=== PATIENT | female | born 1945 | race Caucasian/White ===

== ENCOUNTER → 2017-05-31 | Day surgery (SDC) | payer MEDICARE, BC ==
[~2017-05-31] MED LIST: CYAN1TAB24; ESTR2TAB PO; LIDOCAINE HCL 1% 20 ML VIAL ONE; LORA10TA PO; LOSA100T3 PO; MELAPOW2; OMEG100010; PANT40TA3 PO; RANI150T PO; ROSU1TAB6 PO; SYMB160A INH; TUMS500C CHEW; VENTAER INH; VITA500012 PO
[2017-05-31 13:26] VITALS: BP 163/72; PULSE 44; RESP 18; TEMP 98.4; O2SAT 94
[2017-05-31 14:20] VITALS: BP 167/78; PULSE 70; RESP 20; TEMP 97.7; O2SAT 98
[2017-05-31 14:40] VITALS: BP 152/64; PULSE 72; RESP 18; O2SAT 98
--- NOTE | 2017-05-31 14:40 | RADRPT ---
EXAM DATE/TIME: 05/31/2017 13:32 [facility] COMPARISON: No previous studies available for comparison. EXTERNAL COMPARISON: [facility], Ultrasound Thyroid, Apr 25 2017 INDICATIONS : Bilateral thyroid nodules. The dominant nodule in the right thyroid lobe measuring up to 1.9 cm will be targeted. MEDICAL HISTORY : Hypertension. Hypertriglyceridemia. Hyperlipidemia. Asthma. Fatty liver. SURGICAL HISTORY : Hysterectomy. Breast biopsy. Breast reduction. Infertility surgery. Radical keratotomy. Liver bio psy. Colonoscopy. Abdominal leiomyoma removal. ENCOUNTER: Initial ACUITY: 1 month PAIN SCORE: 0/10 LOCATION: Right neck ORGAN: Right thyroid lobe SPECIMENS: Four fine needle aspirate(s) submitted for pathologic evaluation. DEVICE: 22 gauge needle Post procedure scanning reveals no hematoma or other complication. The possibility does exist that the tissue obtained will be non-diagnostic. If the sample is non-barbara gnostic a repeat biopsy or surgical biopsy may need to be performed. TECHNIQUE: 1. Ultrasound guidance for needle biopsy. 2. Needle biopsy. The risks, benefits and alternatives to the procedure were explained and verbal and written consent w as obtained. The site was prepped in sterile fashion. Full sterile technique was used, including ca p, mask, sterile gloves and gown and a large sterile sheet. Hand hygiene and 2% chlorhexidine and/or betadine/alcohol prep was utilized per protocol for cutaneous antisepsis. The skin and subcutaneous tissues were infiltrated with local anesthetic solution. Sterile gel and sterile probe cover were u tilized for ultrasound guidance. With the patient on the ultrasound table, images were obtained. A needle was advanced into the identified target and the number of specimens as above obtained and weber bmitted for pathologic evaluation. The patient tolerated the procedure well and left the ultrasound suite in stable condition. CONCLUSION: Uncomplicated ultrasound guided right thyroid nodule needle biopsy. Diaz Alejandra MD on May 31, 2017 at 14:38 Board Certified Radiologist. This report was verified electronically.
--- NOTE | 2017-05-31 14:41 | RADRPT ---
EXAM DATE/TIME: 05/31/2017 13:32 [facility] COMPARISON: No previous studies available for comparison. EXTERNAL COMPARISON: [facility], Ultrasound Thyroid, Apr 25 2017 INDICATIONS : Multiple bilateral thyroid nodules. The dominant nodule measuring up to 1.1 cm in the left thyroid lo be will be targeted. MEDICAL HISTORY : Hypertension. Hypertriglyceridemia. Hyperlipidemia. Asthma. Fatty liver. SURGICAL HISTORY : Hysterectomy. Breast biopsy. Breast reduction. Infertility surgery. Radical keratotomy. Liver bio psy. Colonoscopy. Abdominal leiomyoma removal. ENCOUNTER: Initial ACUITY: 1 month PAIN SCORE: 0/10 LOCATION: Left neck ORGAN: Left thyroid lobe SPECIMENS: Four fine needle aspirate(s) submitted for pathologic evaluation. DEVICE: 22 gauge needle Post procedure scanning reveals no hematoma or other complication. The possibility does exist that the tissue obtained will be non-diagnostic. If the sample is non-barbara gnostic a repeat biopsy or surgical biopsy may need to be performed. TECHNIQUE: 1. Ultrasound guidance for needle biopsy. 2. Needle biopsy. The risks, benefits and alternatives to the procedure were explained and verbal and written consent w as obtained. The site was prepped in sterile fashion. Full sterile technique was used, including ca p, mask, sterile gloves and gown and a large sterile sheet. Hand hygiene and 2% chlorhexidine and/or betadine/alcohol prep was utilized per protocol for cutaneous antisepsis. The skin and subcutaneous tissues were infiltrated with local anesthetic solution. Sterile gel and sterile probe cover were u tilized for ultrasound guidance. With the patient on the ultrasound table, images were obtained. A needle was advanced into the identified target and the number of specimens as above obtained and weber bmitted for pathologic evaluation. The patient tolerated the procedure well and left the ultrasound suite in stable condition. CONCLUSION: Uncomplicated ultrasound guided needle biopsy. Diaz Alejandra MD on May 31, 2017 at 14:38 Board Certified Radiologist. This report was verified electronically.
== END | disposition home or self-care (01) ==
LOC: HRAD 12:49
PROVIDERS: ATTEND Physician Assistant Medical
DX: E04.2 Nontoxic multinodular goiter (principal); E78.1 Pure hyperglyceridemia; I10 Essential (primary) hypertension; J45.909 Unspecified asthma, uncomplicated
CPT/HCPCS: 10022; 76942; 88172; 88173

== ENCOUNTER 2018-06-11 12:48 | Observation (INO) ==
--- NOTE | 2018-06-11 13:57 | ED ---
HPI General Chief Complaint: Shortness of Breath/Dyspnea Stated Complaint: Resp complaint Time Seen by Provider: 06/11/18 13:07 Source: patient Mode of arrival: ambulatory Limitations: no limitations History of Present Illness 73 yo F c/o asthma symptoms for about three weeks. Pt has hx asthma dx'd 20 years prior. At home inhalers (ventolin/symbicort) have note been helpful, using them up to 5 times daily. No fever/chills. + Sick contact with who had a viral syndrome. Pt visiting Dr Wells for steroid infusions which have not been helpful. Pt completed course of azithromycin with no improvement. Pt finished course of Levaquin with no improvement. Mild chest tightness is reported c/w typical asthma symptoms. No similar prior asthma episodes. Related Data Home Medications Medication Instructions Recorded Confirmed albuterol sulfate [Ventolin HFA] 2 puff INHALATION Q4-6H PRN 06/11/18 06/11/18 budesonide-formoterol [Symbicort] 2 puff INHALATION Q12H 06/11/18 06/11/18 estradiol 2 mg PO DAILY 06/11/18 06/11/18 loratadine 10 mg PO DAILY 06/11/18 06/11/18 losartan-hydrochlorothiazide 1 tab PO DAILY 06/11/18 06/11/18 melatonin 5 mg PO HS PRN 06/11/18 06/11/18 omega 9-occ-rla-fish oil [Fish Oil] 06/11/18 pantoprazole 40 mg PO DAILY 06/11/18 06/11/18 ranitidine HCl 150 mg PO DAILY 06/11/18 06/11/18 Allergies Allergy/AdvReac Type Severity Reaction Status Date / Time cephalexin Allergy Severe Hives Verified 06/11/18 15:23 adhesive Allergy Intermediate skin Verified 06/11/18 15:23 irritation Review of Systems ROS: all other systems reviewed are negative [facility] Medical History Medical History Asthma (Acute) GERD (gastroesophageal reflux disease) (Acute) History of hysterectomy (Acute) Hypercholesteremia (Acute) Hypertension (Acute) Surgical History Surgical History History of bilateral breast reduction surgery (Acute) Social History Social History Substance History: No History of Abuse Smoking Status: Never smoker How Often Do You Have a Drink Containing Alcohol: Never Recent Travel in [facility] within the Last 8 Weeks: No Recent Out of Country Travel within the Last 8 Weeks: No Immunization History Tetanus Immunization: >5 Years Exam Narrative Exam Narrative: GENERAL: 73 yo F, pleasant, mild dyspnea SKIN: Focused skin assessment warm/dry. HEAD: Atraumatic. Normocephalic. EYES: Pupils equal and round. No scleral icterus. No injection or drainage. ENT: No nasal bleeding or discharge. Mucous membranes pink and moist. NECK: Trachea midline. No JVD. CARDIOVASCULAR: Tachycardia to about 90s. Regular rhythm. RESPIRATORY: Occasional cough. Wheezing present bilaterally. Rate approx 20. GASTROINTESTINAL: Abdomen soft, non-tender, nondistended. Hepatic and splenic margins not palpable. MUSCULOSKELETAL: No obvious deformities. No clubbing. No cyanosis. No edema. NEUROLOGICAL: Awake and alert. No obvious cranial nerve deficits. Motor grossly within normal limits. Normal speech. PSYCHIATRIC: Appropriate mood and affect; insight and judgment normal. Course Initial Documented Vital Signs Temperature 97.2 F L 06/11/18 12:59 Pulse Rate 101 H 06/11/18 12:59 Respiratory Rate 20 06/11/18 12:59 Blood Pressure 198/88 H 06/11/18 12:59 Pulse Oximetry 96 06/11/18 12:59 Last Documented Vital Signs Temperature 97.2 F L 06/11/18 12:59 Pulse Rate 66 06/11/18 15:24 Respiratory Rate 16 06/11/18 15:24 Blood Pressure 134/61 06/11/18 15:24 Pulse Oximetry 95 06/11/18 15:24 Medical Decision Making MDM Narrative Medical decision making narrative: Pt reports marginal improvement after duonebs here x 2. We see a measurable troponin here at 0.02. Pt denies stress test/coronary evaluation since. Mild prerenal azotemia noted, possibly related to measurable troponin. CT PE study shows base density which was seen two years ago and followed up one year prior. Pt will follow up with PMD regarding nodule; pt verbalized intent to follow up as discussed. Call to admitting service at 340pm. d/w Dr Zhang for [facility]. Medical Screen Exam Complete: Yes Emergency Medical Condition: Yes Lab Data Result diagrams: 06/11/18 13:45 06/11/18 13:45 Lab Results 06/11/18 06/11/18 06/11/18 Range/Units 13:45 13:45 13:45 WBC 19.5 H (4.0-11.0) th/mm3 RBC 4.04 (4.00-5.30) mil/mm3 Hgb 13.3 (11.6-15.3) gm/dL Hct 38.4 (35.0-46.0) % MCV 95.0 (80.0-100.0) fL MCH 33.0 (27.0-34.0) pg MCHC 34.7 (32.0-36.0) % RDW 13.3 (11.6-17.2) % Plt Count 162 (150-450) th/mm3 MPV 7.6 (7.0-11.0) fL Neut % (Auto) 80.4 H (16.0-70.0) % Lymph % (Auto) 10.7 (9.0-44.0) % [place] % (Auto) 8.7 H (0.0-8.0) % Eos % (Auto) 0.0 (0.0-4.0) % Baso % (Auto) 0.2 (0.0-2.0) % Neut # (Auto) 15.7 H (1.8-7.7) th/mm3 Lymph # (Auto) 2.1 (1.0-4.8) th/mm3 [place] # (Auto) 1.7 H (0.0-0.9) th/mm3 Eos # (Auto) 0.0 (0.0-0.4) th/mm3 Baso # (Auto) 0.0 (0.0-0.2) th/mm3 WBC Differential . Differential Comment Auto diff final Sodium 140 (136-145) meq/L Potassium 3.5 (3.5-5.1) meq/L Chloride 106 (98-107) meq/L Carbon Dioxide 22.5 (21.0-32.0) meq/L Anion Gap 12 (5-15) meq/L BUN 39 H (7-18) mg/dL Creatinine 1.23 H (0.50-1.00) mg/dL Estimated GFR 43 L (>89) mL/min Random Glucose 96 (74-106) mg/dL Calcium 8.4 L (8.5-10.1) mg/dL Total Bilirubin 0.5 (0.2-1.0) mg/dL AST 10 L (15-37) U/L ALT 24 (10-53) U/L Alkaline Phosphatase 75 (45-117) U/L Troponin I 0.02 (0.02-0.05) ng/mL B-Natriuretic Peptide 52 (0-100) pg/mL Total Protein 6.8 (6.4-8.2) g/dL Albumin 3.2 L (3.4-5.0) g/dL Imaging Data Radiologist's impression: Chest X-Ray 06/11/18 13:31 CONCLUSION: No acute cardiopulmonary process. Chest CTA 06/11/18 13:33 CONCLUSION: 1. No pulmonary emboli. 2. 6 mm left lower lobe pulmonary nodule with some worrisome features. The lesion is too small for percutaneous biopsy. Consider further characterization utilizing a PET/CT. Alternatively a short-term follow-up CT of the chest in 3-6 months. Discharge Plan Discharge Disposition Patient Disposition: ED Admit(ED Internal Use Only) Discharge Order Discharge Orders: ED Use Only Admit Order (Routine); Ordered 06/11/18 Ordered By: John Suárez Physicians Team ED Provider: John Suárez Primary Care Provider: UNKNOWN, Attending Provider: Rory Pedraza Status ED Status: Admitted Observation Patient
[2018-06-11 14:00] LABS: Baso % (Auto) 0.2 % (0.0-2.0); Hematocrit 38.4 % (35.0-46.0); Hemoglobin 13.3 gm/dL (11.6-15.3); Lymph # (Auto) 2.1 th/mm3 (1.0-4.8); Lymph % (Auto) 10.7 % (9.0-44.0); Mean Corpuscular HGB Conc 34.7 % (32.0-36.0); Mean Platelet Volume 7.6 fL (7.0-11.0); Mono # (Auto) 1.7 th/mm3 (0.0-0.9); Mono % (Auto) 8.7 % (0.0-8.0); Neut # (Auto) 15.7 th/mm3 (1.8-7.7); Neut % (Auto) 80.4 % (16.0-70.0); Platelet Count 162 th/mm3 (150-450); Red Blood Count 4.04 mil/mm3 (4.00-5.30); Red Cell Distribution Width 13.3 % (11.6-17.2); White Blood Count 19.5 th/mm3 (4.0-11.0)
--- NOTE | 2018-06-11 14:15 | XR ---
EXAM DATE: 06/11/2018 1:58 PM EST AGE/SEX: 73 years / Female INDICATIONS: Difficulty breathing and chest tightness. CLINICAL DATA: This is the patient's initial encounter. Patient reports that signs and symptoms have been present for 2 days and indicates a pain score of 1/10. MEDICAL/SURGICAL HISTORY: Hypertension. Asthma. Breast biopsy. Breast reduction. Liver biopsy. COMPARISON: [facility] [place], CHEST SINGLE AP, 03/31/2016. . FINDINGS: A single AP view of the chest demonstrates the lungs to be symmetrically aerated without evidence of mass, infiltrate or effusion. The cardiomediastinal contours are unremarkable. Osseous structures a re intact. CONCLUSION: No acute cardiopulmonary process. Electronically signed by: Yariel Lemos MD 06/11/2018 2:14 PM EST
[2018-06-11 14:20] LABS: Alanine Aminotransferase 24 U/L (10-53); Albumin 3.2 g/dL (3.4-5.0); Anion Gap 12 meq/L (5-15); Aspartate Aminotransferase 10 U/L (15-37); Blood Urea Nitrogen 39 mg/dL (7-18); Calcium 8.4 mg/dL (8.5-10.1); Carbon Dioxide 22.5 meq/L (21.0-32.0); Chloride 106 meq/L (98-107); Glomerular Filtration Rate 43 mL/min (>89); Glucose,Random 96 mg/dL (74-106); Potassium 3.5 meq/L (3.5-5.1); Sodium 140 meq/L (136-145)
[2018-06-11 14:24] LABS: Alkaline Phosphatase 75 U/L (45-117); Total Protein 6.8 g/dL (6.4-8.2); Troponin I 0.02 ng/mL (0.02-0.05)
[2018-06-11] MEDS ORDERED: Sod Chloride 0.9% Inj 1,000 ML IV.SIG SCH ×3 (14:45→17:00)
--- NOTE | 2018-06-11 15:20 | CT ---
EXAM DATE: 06/11/2018 3:11 PM EST AGE/SEX: 73 years / Female INDICATIONS: Shortness of breath for three days. CLINICAL DATA: This is the patient's initial encounter. Patient reports that signs and symptoms have been present for 1 day and indicates a pain score of 0/10. MEDICAL/SURGICAL HISTORY: Asthma. Gastroesophageal reflux disease. Hypertension. Hysterectomy. RADIATION DOSE: 13.56 CTDI (mGy) COMPARISON: No prior exams available for comparison. TECHNIQUE: Volumetric scanning was performed using a multi-row detector CT scanner during bolus infu sabino of 66 ml Omnipaque 350 (iohexol) nonionic water-soluble contrast as a single exam dose. The khris a was post processed with a variety of visualization algorithms including full volume maximum intensi ty projection and sliding thin slab reformation. Using automated exposure control and adjustment of t he mA and/or kV according to patient size, radiation dose was kept as low as reasonably achievable to obtain optimal diagnostic quality images. DICOM format image data is available electronically for r eview and comparison. FINDINGS: Pulmonary Arteries: No filling defects are seen in the pulmonary arteries out to the subsegmental ve ssels. The left and right pulmonary arteries are normal in diameter. Lung: There is a 6 mm spiculated nodule within the posterior basilar segment left lower lobe. A 2 mm calcified granuloma within the right upper lobe. Remaining lungs are clear. No infiltrate.. Effusion: None. Mediastinum: No evidence of mediastinal or hilar adenopathy. Other: The axilla is unremarkable. CONCLUSION: 1. No pulmonary emboli. 2. 6 mm left lower lobe pulmonary nodule with some worrisome features. The lesion is too small for p ercutaneous biopsy. Consider further characterization utilizing a PET/CT. Alternatively a short-term follow-up CT of the chest in 3-6 months. Electronically signed by: Kaden Zavala MD 06/11/2018 3:19 PM EST
--- NOTE | 2018-06-11 16:26 | P.HPFP ---
History of Present Illness Primary Care Physician: UNKNOWN <Rory Pedraza - 06/12/18 15:32> UNKNOWN <Timmy Zhang - 06/11/18 16:25> History of Present Illness: She is a 73-year-old woman with past medical history significant for asthma and hypertension who presents today with shortness of breath and chest tightness for 3 weeks. She went to her lab coordinator around the onset of her symptoms and was given a week of prednisone and azithromycin with little improvement. She went back to the lab coordinator and was given different medications that she is not sure of. This week she has been going to the lab coordinator for IV steroid infusions in the clinic (Tuesday and Tuesday). She had little improvement and was scheduled to go in for IV steroids today, however she decided to go to the ED instead. She continues have shortness of breath and cough and difficulty breathing deeply. Her cough is not productive. She does have some chest tightness, a mild feeling of weakness, and a feeling of racing heart, however denies ever chest pain. She is still able to complete her normal activities around the house, however has not been getting any exercise. Her is sick with a viral syndrome at home. She has had 2 days of nonbloody diarrhea (4 stools per day) She denies chest pain, headache, nausea, vomiting, lightheadedness, dizziness, changes in vision, changes in hearing, abdominal pain, blood in stool, dysuria. Medical history: Asthma: [employer] Dr. Wells [facility] [place] Hypertension Hyperlipidemia Surgical history: Breast reduction 1996 Hysterectomy 1986 Radial Karatonomy 1991 Abdomen mass removed 03/31/16 Family history: Multiple family members with early heart disease Social history: No tobacco, no drinking, no drugs <Timmy Zhang - 06/11/18 17:07> - Diagnosis (1) Asthma (2) Acute kidney injury (3) Hypertension (4) Leukocytosis (5) Lung nodule < 6cm on CT <Rory Pedraza - 06/12/18 15:32> (1) Asthma (2) Elevated troponin (3) Acute kidney injury (4) Leukocytosis <Timmy Zhang - 06/11/18 16:39> Review of Systems Constitutional: Denies chills, Denies fever(s) <Timmy Zhang - 17:07> Eyes: Denies blurry vision, Denies change in vision <Timmy Zhang 17:07> Ears, Nose, Mouth, and Throat: Denies abnormal hearing, Denies dizziness < Timmy Zhang 06/11/18 17:07> Cardiovascular: Denies chest pain, Denies fainting, Denies radiating jaw, neck or arm pain <Timmy Zhang 06/11/18 17:07> Respiratory: Reports cough, Reports shortness of breath, Denies coughing up blood <Timmy Zhang 06/11/18 17:07> Gastrointestinal: Denies abdominal pain, Denies black, tarry stools, Denies bright, red blood in stools <Timmy Zhang 06/11/18 17:07> Neurologic: Denies abnormal hearing, Denies loss of vision <Timmy Zhang 06/11/18 17:07> PMFSH - History History Provided By: Patient, Family Member <Timmy Zhang 06/11/18 16:25> - Medical History Medical History: Medical History (Last Updated 06/11/18 @ 13:21 by Janki Porter) Asthma GERD (gastroesophageal reflux disease) History of hysterectomy Hypercholesteremia Hypertension <Rory Pedraza - 06/12/18 15:32> Medical History (Last Updated 06/11/18 @ 13:21 by Janki Porter) Asthma GERD (gastroesophageal reflux disease) History of hysterectomy Hypercholesteremia Hypertension <Timmy Zhang - 06/11/18 16:25> - Surgical History Surgical History: Surgical History (Last Updated 06/11/18 @ 13:21 by Janki Porter) History of bilateral breast reduction surgery <Rory Pedraza - 06/12/18 15:32> Surgical History (Last Updated 06/11/18 @ 13:21 by Janki Porter) History of bilateral breast reduction surgery <Timmy Zhang 06/11/18 16:25> - Tobacco History Smoking Status: Never smoker <Timmy Zhang - 06/11/18 16:25> - Alcohol History How Often Do You Have a Drink Containing Alcohol: Never <Timmy Zhang - 06/11/18 16:25> - Substance Use History Substance History: No History of Abuse <Timmy Zhang - 06/11/18 16:25> - Travel History Recent Travel in the [facility] Within the Last 8 Weeks: No <Timmy Zhang - 06/11/18 16:25> Recent Travel Out of the Country Within the Last 8 Weeks: No <Timmy Zhang - 06/11/18 16:25> - Immunization History Tetanus Immunization: >5 Years <Timmy Zhang - 06/11/18 16:25> Medications and Allergies Allergies Allergy/AdvReac Type Severity Reaction Status Date / Time cephalexin Allergy Severe Hives Verified 06/11/18 15:23 adhesive Allergy Intermediate skin Verified 06/11/18 15:23 irritation <Rory Pedraza - 06/12/18 15:32> Home Medications Medication Instructions Recorded Confirmed Type albuterol sulfate [Ventolin HFA] 2 puff INHALATION Q4-6H PRN 06/11/18 06/11/18 History budesonide-formoterol [Symbicort] 2 puff INHALATION Q12H 06/11/18 06/11/18 History estradiol 2 mg PO DAILY 06/11/18 06/11/18 History loratadine 10 mg PO DAILY 06/11/18 06/11/18 History losartan-hydrochlorothiazide 1 tab PO DAILY 06/11/18 06/11/18 History melatonin 5 mg PO HS PRN 06/11/18 06/11/18 History omega 0-sln-rfh-fish oil [Fish Oil] 06/11/18 History pantoprazole 40 mg PO DAILY 06/11/18 06/11/18 History ranitidine HCl 150 mg PO DAILY 06/11/18 06/11/18 History <Rory Pedraza - 06/12/18 15:32> Active Medications: Active Medications Albuterol (Duoneb Neb (Prn)) 1 ampul NEB Q15M PRN PRN Reason: WHEEZING Last Admin: 06/11/18 14:26 Dose: 1 ampul Sodium Chloride (Ns Inj) 1,000 mls @ 1,000 mls/hr IV.SIG BOLUS RAUL Stop: 06/11/18 16:44 <Timmy Zhang - 06/11/18 16:25> Exam Vital signs: Vital Signs 06/11/18 19:41 06/11/18 20:00 06/12/18 00:01 Temperature 97.6 F 97.7 F Pulse Rate 80 77 77 Respiratory Rate 17 16 16 Blood Pressure 138/71 128/63 Pulse Oximetry 98 96 96 06/12/18 04:00 06/12/18 07:00 06/12/18 07:29 Temperature 98.1 F Pulse Rate 58 L 62 Respiratory Rate 20 12 17 Blood Pressure 131/56 L Pulse Oximetry 95 97 06/12/18 07:59 06/12/18 09:00 06/12/18 11:20 Temperature 97.4 F L Pulse Rate 82 64 74 Respiratory Rate 16 17 Blood Pressure 145/65 H Pulse Oximetry 96 06/12/18 12:00 06/12/18 15:19 Temperature Pulse Rate 73 72 Respiratory Rate 16 17 Blood Pressure 121/60 Pulse Oximetry 96 Intake & Output 06/11/18 06/12/18 06/12/18 18:59 06:59 18:59 Intake Total 1999 1230 / 1230 1000 / 1000 Balance 1999 1230 / 1230 1000 / 1000 Weight 72.121 kg 72.12 kg Intake: IV 1999 1000 / 1000 NS Inj 1,000 ML @ 1000 mls/hr 1999 IV.SIG BOLUS RAUL Rx#:[id number] Oral 1230 / 1230 Other: # Voids 3 4 Date of Last Bowel Movement 06/11/18 06/12/18 Weight On Admission 72.121 kg <Rory Pedraza - 06/12/18 15:32> Vital Signs 06/11/18 12:59 06/11/18 13:15 06/11/18 13:48 Temperature 97.2 F L Pulse Rate 101 H 91 H 68 Respiratory Rate 20 18 Blood Pressure 198/88 H 187/80 H Pulse Oximetry 96 97 96 06/11/18 14:27 06/11/18 15:24 Temperature Pulse Rate 68 66 Respiratory Rate 17 16 Blood Pressure 134/61 Pulse Oximetry 95 Intake & Output 06/10/18 06/11/18 06/11/18 18:59 06:59 18:59 Weight 72.121 kg <Timmy Zhang - 06/11/18 16:25> Narrative: General: Well-developed, alert, and in no acute distress. Appears stated age HEENT: Atraumatic, non-icteric sclera and no conjunctival injection, moist mucous membranes Neck: Supple, trachea midline Cardiac: Regular rate and rhythm without murmurs or gallops Pulmonary: Non-labored breathing. Mild end expiratory wheezes in all lung martin with good air movement. Abdomen: Normal bowel sounds, soft and non-tender without rebound or guarding Extremities: No edema, 2+ pedal pulses, capillary refill less than 2 seconds <Timmy Zhang - 06/11/18 17:07> Results - Labs Result diagrams: 06/12/18 04:21 06/12/18 04:21 <Rory Pedraza - 06/12/18 15:32> Abnormal lab results 06/12/18 06/12/18 06/12/18 Range/Units 04:21 04:21 10:37 WBC 11.9 H (4.0-11.0) th/mm3 RBC 3.75 L (4.00-5.30) mil/mm3 Plt Count 136 L (150-450) th/mm3 Neut % (Auto) 88.5 H (16.0-70.0) % Lymph % (Auto) 8.6 L (9.0-44.0) % Neut # (Auto) 10.6 H (1.8-7.7) th/mm3 Chloride 109 H (98-107) meq/L BUN 30 H (7-18) mg/dL Creatinine 1.15 H (0.50-1.00) mg/dL Estimated GFR 47 L (>89) mL/min Random Glucose 136 H (74-106) mg/dL Calcium 8.3 L (8.5-10.1) mg/dL Troponin I Less than 0.02 L (0.02-0.05) ng/mL Short CBC 06/12/18 Range/Units 04:21 WBC 11.9 H (4.0-11.0) th/mm3 Hgb 12.2 (11.6-15.3) gm/dL Hct 36.1 (35.0-46.0) % Plt Count 136 L (150-450) th/mm3 BMP 06/12/18 04:21 Sodium 139 Potassium 4.3 D Chloride 109 H Carbon Dioxide 23.6 BUN 30 H Creatinine 1.15 H Calcium 8.3 L Cardiac Enzymes 06/11/18 06/12/18 Range/Units 19:25 10:37 Troponin I 0.03 Less than 0.02 L (0.02-0.05) ng/mL <Rory Pedraza - 06/12/18 15:32> Abnormal lab results 06/11/18 06/11/18 Range/Units 13:45 13:45 WBC 19.5 H (4.0-11.0) th/mm3 Neut % (Auto) 80.4 H (16.0-70.0) % Blount % (Auto) 8.7 H (0.0-8.0) % Neut # (Auto) 15.7 H (1.8-7.7) th/mm3 Blount # (Auto) 1.7 H (0.0-0.9) th/mm3 BUN 39 H (7-18) mg/dL Creatinine 1.23 H (0.50-1.00) mg/dL Estimated GFR 43 L (>89) mL/min Calcium 8.4 L (8.5-10.1) mg/dL AST 10 L (15-37) U/L Albumin 3.2 L (3.4-5.0) g/dL Short CBC 06/11/18 Range/Units 13:45 WBC 19.5 H (4.0-11.0) th/mm3 Hgb 13.3 (11.6-15.3) gm/dL Hct 38.4 (35.0-46.0) % Plt Count 162 (150-450) th/mm3 BMP 06/11/18 13:45 Sodium 140 Potassium 3.5 Chloride 106 Carbon Dioxide 22.5 BUN 39 H Creatinine 1.23 H Calcium 8.4 L Cardiac Enzymes 06/11/18 Range/Units 13:45 Troponin I 0.02 (0.02-0.05) ng/mL Liver Function 06/11/18 Range/Units 13:45 Total Bilirubin 0.5 (0.2-1.0) mg/dL AST 10 L (15-37) U/L ALT 24 (10-53) U/L Alkaline Phosphatase 75 (45-117) U/L Albumin 3.2 L (3.4-5.0) g/dL <Timmy Zhang - 06/11/18 16:25> - Imaging Impressions Chest X-Ray 06/11/18 13:31 CONCLUSION: No acute cardiopulmonary process. Chest CTA 06/11/18 13:33 CONCLUSION: 1. No pulmonary emboli. 2. 6 mm left lower lobe pulmonary nodule with some worrisome features. The lesion is too small for percutaneous biopsy. Consider further characterization utilizing a PET/CT. Alternatively a short-term follow-up CT of the chest in 3-6 months. <Timmy Zhang - 06/11/18 16:25> Caprini VTE Risk Assessment Caprini VTE Risk Assessment: Moderate/High Risk (score >= 2) <Timmy Zhang - 06/11/18 17:07> Caprini Risk Assessment Model: Point Value = 1 Point Value = 2 Point Value = 3 Point Value = 5 Age 41-60 Minor surgery BMI > 25 kg/m2 Swollen legs Varicose veins or History of unexplained or recurrent spontaneous Oral contraceptives or hormone replacement Sepsis (< 1 month) Serious lung disease, including pneumonia (< 1 month) Abnormal pulmonary function Acute myocardial infarction Congestive heart failure (< 1 month) History of inflammatory bowel disease Medical patient at bed rest Age 61-74 Arthroscopic surgery Major open surgery (> 45 min) Laparoscopic surgery (> 45 min) Malignancy Confined to bed (> 72 hours) Immobilizing plaster cast Central venous access Age >= 75 History of VTE Family history of VTE Factor V Leiden Prothrombin [id number] Lupus anticoagulant Anticardiolipin antibodies Elevated serum homocysteine Heparin-induced thrombocytopenia Other congenital or acquired thrombophilia Stroke (< 1 month) Elective arthroplasty Hip, pelvis, or leg fracture Acute spinal cord injury (< 1 month) <Rory Pedraza - 06/12/18 15:32> Point Value = 1 Point Value = 2 Point Value = 3 Point Value = 5 Age 41-60 Minor surgery BMI > 25 kg/m2 Swollen legs Varicose veins or History of unexplained or recurrent spontaneous Oral contraceptives or hormone replacement Sepsis (< 1 month) Serious lung disease, including pneumonia (< 1 month) Abnormal pulmonary function Acute myocardial infarction Congestive heart failure (< 1 month) History of inflammatory bowel disease Medical patient at bed rest Age 61-74 Arthroscopic surgery Major open surgery (> 45 min) Laparoscopic surgery (> 45 min) Malignancy Confined to bed (> 72 hours) Immobilizing plaster cast Central venous access Age >= 75 History of VTE Family history of VTE Factor V Leiden Prothrombin 01000G Lupus anticoagulant Anticardiolipin antibodies Elevated serum homocysteine Heparin-induced thrombocytopenia Other congenital or acquired thrombophilia Stroke (< 1 month) Elective arthroplasty Hip, pelvis, or leg fracture Acute spinal cord injury (< 1 month) <Timmy Zhang - 06/11/18 17:07> Prophylaxis Regimen: Total Risk Factor Score Risk Level Prophylaxis Regimen 0-1 Low Early ambulation 2 Moderate Order ONE of the following: *Sequential Compression Device (SCD) *Heparin 5000 units SQ BID 3-4 Higher Order ONE of the following medications: *Heparin 5000 units SQ TID *Enoxaparin/Lovenox 40 mg SQ daily (WT < 150 kg, CrCl > 30 mL/min) *Enoxaparin/Lovenox 30 mg SQ daily (WT < 150 kg, CrCl > 10-29 mL/min) *Enoxaparin/Lovenox 30 mg SQ BID (WT < 150 kg, CrCl > 30 mL/min) AND/OR *Sequential Compression Device (SCD) 5 or more Highest Order ONE of the following medications: *Heparin 5000 units SQ TID (Preferred with Epidurals) *Enoxaparin/Lovenox 40 mg SQ daily (WT < 150 kg, CrCl > 30 mL/min) *Enoxaparin/Lovenox 30 mg SQ daily (WT < 150 kg, CrCl > 10-29 mL/min) *Enoxaparin/Lovenox 30 mg SQ BID (WT < 150 kg, CrCl > 30 mL/min) AND *Sequential Compression Device (SCD) <Rory Pedraza - 06/12/18 15:32> Total Risk Factor Score Risk Level Prophylaxis Regimen 0-1 Low Early ambulation 2 Moderate Order ONE of the following: *Sequential Compression Device (SCD) *Heparin 5000 units SQ BID 3-4 Higher Order ONE of the following medications: *Heparin 5000 units SQ TID *Enoxaparin/Lovenox 40 mg SQ daily (WT < 150 kg, CrCl > 30 mL/min) *Enoxaparin/Lovenox 30 mg SQ daily (WT < 150 kg, CrCl > 10-29 mL/min) *Enoxaparin/Lovenox 30 mg SQ BID (WT < 150 kg, CrCl > 30 mL/min) AND/OR *Sequential Compression Device (SCD) 5 or more Highest Order ONE of the following medications: *Heparin 5000 units SQ TID (Preferred with Epidurals) *Enoxaparin/Lovenox 40 mg SQ daily (WT < 150 kg, CrCl > 30 mL/min) *Enoxaparin/Lovenox 30 mg SQ daily (WT < 150 kg, CrCl > 10-29 mL/min) *Enoxaparin/Lovenox 30 mg SQ BID (WT < 150 kg, CrCl > 30 mL/min) AND *Sequential Compression Device (SCD) <Timmy Zhang - 06/11/18 16:25> Assessment and Plan - Assessment (1) Asthma Code(s): J45.909 - Unspecified asthma, uncomplicated Status: Acute (2) Acute kidney injury Code(s): N17.9 - Acute kidney failure, unspecified Status: Acute (3) Hypertension Code(s): I10 - Essential (primary) hypertension Status: Acute (4) Leukocytosis Code(s): D72.829 - Elevated white blood cell count, unspecified Status: Acute (5) Lung nodule < 6cm on CT Code(s): R91.1 - Solitary pulmonary nodule Status: Acute <Rory Pedraza - 06/12/18 15:32> (1) Asthma Code(s): J45.909 - Unspecified asthma, uncomplicated Status: Acute (2) Elevated troponin Code(s): R74.8 - Abnormal levels of other serum enzymes Status: Acute (3) Acute kidney injury Code(s): N17.9 - Acute kidney failure, unspecified Status: Acute (4) Leukocytosis Code(s): D72.829 - Elevated white blood cell count, unspecified Status: Acute <Timmy Zhang - 06/11/18 16:39> - Assessment and Plan She is a 73-year-old female who presented with shortness of breath and chest tightness and a troponin of 0.02. Troponin elevation: She has a history of hypertension, hyperlipidemia, and early family cardiac disease. She is not a smoker. Her troponin was barely detectable at 0.02. -Repeat troponin and EKG -Observation overnight Asthma: She has a 3-week history of shortness of breath and is been treated by her lab coordinator as an outpatient with IV steroids. She has mild end expiratory wheezes. -PO prednisone -Continue home medications Symbicort -Scheduled duo neb every 4 hours while awake -Albuterol every 2 hours in between if needed for shortness of breath Acute kidney injury: Creatinine of 1.23 and BUN of 39. Likely prerenal -IV fluids and recheck tomorrow Hypertension: -Continue home medication losartan hydrochlorothiazide Leukocytosis: Most likely secondary to steroids -Monitor for signs and symptoms of systemic infection Fluids: 1 L NS bolus, adequate p.o. intake Electrolytes: monitor and replete as needed Nutrition: Regular diet GI prophylaxis: not indicated, continue home medication Protonix VTE prophylaxis: Early ambulation <Timmy Zhang - 06/11/18 17:07> - Attending Attestation See the residents documentation for details. I saw and evaluated the patient regarding the witt portions of this evaluation and agree with the residents findings and plans as written. Parts of this note were created using [employer] voice recognition software program. While efforts were made to correct any mistakes made by this software, some mistakes, errors, and omissions may remain in the final note that were not caught when the note was originally created. Plan of care was discussed and agreed upon with the patient as specifically documented in the above note. An opportunity to ask questions with explanation was provided. Patient voiced understanding on all information reviewed and discussed. <Rory Pedraza - 06/12/18 15:32>
[2018-06-11] MEDS ORDERED: Acetaminophen 325 MG Tablet PO PRN (16:40)
[2018-06-11] MEDS ORDERED: Bisacodyl 10 MG Supp RECTAL PRN (16:40)
[2018-06-11] MEDS ORDERED: Melatonin 5 MG Tablet PO PRN (16:42)
[2018-06-11] MEDS: predniSONE 20 MG Tablet PO SCH (19:03)
[2018-06-11] MEDS: Budesonide-Formoterol 160/4.5 MCG 6 GM Inhaler INH SCH (19:04)
[2018-06-11] MEDS: Senna/Docusate Sodium 8.6/50 MG Tablet PO SCH (22:17)
[2018-06-12 05:06] LABS: Baso % (Auto) 0.1 % (0.0-2.0); Eos % (Auto) 0.1 % (0.0-4.0); Hematocrit 36.1 % (35.0-46.0); Hemoglobin 12.2 gm/dL (11.6-15.3); Lymph % (Auto) 8.6 % (9.0-44.0); Mean Corpuscular HGB Conc 33.8 % (32.0-36.0); Mean Corpuscular Hemoglobin 32.5 pg (27.0-34.0); Mean Corpuscular Volume 96.3 fL (80.0-100.0); Mean Platelet Volume 7.9 fL (7.0-11.0); Mono # (Auto) 0.3 th/mm3 (0.0-0.9); Mono % (Auto) 2.7 % (0.0-8.0); Neut # (Auto) 10.6 th/mm3 (1.8-7.7); Neut % (Auto) 88.5 % (16.0-70.0); Platelet Count 136 th/mm3 (150-450); Red Blood Count 3.75 mil/mm3 (4.00-5.30); Red Cell Distribution Width 13.3 % (11.6-17.2); White Blood Count 11.9 th/mm3 (4.0-11.0)
[2018-06-12 05:29] LABS: Calcium 8.3 mg/dL (8.5-10.1); Carbon Dioxide 23.6 meq/L (21.0-32.0); Potassium 4.3 meq/L (3.5-5.1)
[2018-06-12] MEDS: Budesonide-Formoterol 160/4.5 MCG 6 GM Inhaler INH SCH (05:35)
[2018-06-12] MEDS: predniSONE 20 MG Tablet PO SCH (08:01)
[2018-06-12] MEDS: Senna/Docusate Sodium 8.6/50 MG Tablet PO SCH (08:01)
[2018-06-12] MEDS ORDERED: Loratadine 10 MG Tablet PO SCH (09:00)
[2018-06-12] MEDS ORDERED: Famotidine 20 MG Tablet PO SCH (09:00)
[2018-06-12] MEDS ORDERED: Estradiol 1 MG Tablet PO SCH (09:00)
[2018-06-12] MEDS ORDERED: Benzonatate 100 MG Capsule PO PRN (11:09)
--- NOTE | 2018-06-12 11:46 | P.PNFP ---
Subjective Interval history: Patient was seen and examined this morning. She still short of breath but slightly improved from the previous day. She also continues to experience a dry cough which causes her to feel tightening in her chest. No nausea or vomiting, no fever or chills. <EkoCrissy U - 06/12/18 15:30> Results - Labs Result diagrams: 06/12/18 04:21 06/12/18 04:21 <Rory Pedraza - 06/14/18 13:37> Abnormal lab results 06/11/18 06/11/18 06/12/18 Range/Units 13:45 13:45 04:21 WBC 19.5 H 11.9 H (4.0-11.0) th/mm3 RBC 3.75 L (4.00-5.30) mil/mm3 Plt Count 136 L (150-450) th/mm3 Neut % (Auto) 80.4 H 88.5 H (16.0-70.0) % Lymph % (Auto) 8.6 L (9.0-44.0) % [place] % (Auto) 8.7 H (0.0-8.0) % Neut # (Auto) 15.7 H 10.6 H (1.8-7.7) th/mm3 [place] # (Auto) 1.7 H (0.0-0.9) th/mm3 Chloride (98-107) meq/L BUN 39 H (7-18) mg/dL Creatinine 1.23 H (0.50-1.00) mg/dL Estimated GFR 43 L (>89) mL/min Random Glucose (74-106) mg/dL Calcium 8.4 L (8.5-10.1) mg/dL AST 10 L (15-37) U/L Troponin I (0.02-0.05) ng/mL Albumin 3.2 L (3.4-5.0) g/dL 06/12/18 06/12/18 Range/Units 04:21 10:37 WBC (4.0-11.0) th/mm3 RBC (4.00-5.30) mil/mm3 Plt Count (150-450) th/mm3 Neut % (Auto) (16.0-70.0) % Lymph % (Auto) (9.0-44.0) % [place] % (Auto) (0.0-8.0) % Neut # (Auto) (1.8-7.7) th/mm3 [place] # (Auto) (0.0-0.9) th/mm3 Chloride 109 H (98-107) meq/L BUN 30 H (7-18) mg/dL Creatinine 1.15 H (0.50-1.00) mg/dL Estimated GFR 47 L (>89) mL/min Random Glucose 136 H (74-106) mg/dL Calcium 8.3 L (8.5-10.1) mg/dL AST (15-37) U/L Troponin I Less than 0.02 L (0.02-0.05) ng/mL Albumin (3.4-5.0) g/dL Short CBC 06/11/18 06/12/18 Range/Units 13:45 04:21 WBC 19.5 H 11.9 H (4.0-11.0) th/mm3 Hgb 13.3 12.2 (11.6-15.3) gm/dL Hct 38.4 36.1 (35.0-46.0) % Plt Count 162 136 L (150-450) th/mm3 BMP 06/11/18 06/12/18 13:45 04:21 Sodium 140 139 Potassium 3.5 4.3 D Chloride 106 109 H Carbon Dioxide 22.5 23.6 BUN 39 H 30 H Creatinine 1.23 H 1.15 H Calcium 8.4 L 8.3 L Cardiac Enzymes 06/11/18 06/11/18 06/12/18 Range/Units 13:45 19:25 10:37 Troponin I 0.02 0.03 Less than 0.02 L (0.02-0.05) ng/mL Liver Function 06/11/18 Range/Units 13:45 Total Bilirubin 0.5 (0.2-1.0) mg/dL AST 10 L (15-37) U/L ALT 24 (10-53) U/L Alkaline Phosphatase 75 (45-117) U/L Albumin 3.2 L (3.4-5.0) g/dL <Eko,Crissy U - 06/12/18 11:46> - Imaging Impressions Chest X-Ray 06/11/18 13:31 CONCLUSION: No acute cardiopulmonary process. Chest CTA 06/11/18 13:33 CONCLUSION: 1. No pulmonary emboli. 2. 6 mm left lower lobe pulmonary nodule with some worrisome features. The lesion is too small for percutaneous biopsy. Consider further characterization utilizing a PET/CT. Alternatively a short-term follow-up CT of the chest in 3-6 months. <Crissy Hui U - 06/12/18 11:46> Physical Exam Vital signs: Vital Signs 06/11/18 12:59 06/11/18 13:15 06/11/18 13:48 Temperature 97.2 F L Pulse Rate 101 H 91 H 68 Respiratory Rate 20 18 Blood Pressure 198/88 H 187/80 H Pulse Oximetry 96 97 96 06/11/18 14:27 06/11/18 15:24 06/11/18 19:41 Temperature Pulse Rate 68 66 80 Respiratory Rate 17 16 17 Blood Pressure 134/61 Pulse Oximetry 95 98 06/11/18 20:00 06/12/18 00:01 06/12/18 04:00 Temperature 97.6 F 97.7 F 98.1 F Pulse Rate 77 77 58 L Respiratory Rate 16 16 20 Blood Pressure 138/71 128/63 131/56 L Pulse Oximetry 96 96 95 06/12/18 07:00 06/12/18 07:29 06/12/18 07:59 Temperature 97.4 F L Pulse Rate 62 82 Respiratory Rate 12 17 16 Blood Pressure 145/65 H Pulse Oximetry 97 96 06/12/18 09:00 Temperature Pulse Rate 64 Respiratory Rate Blood Pressure Pulse Oximetry Intake & Output 06/11/18 06/12/18 06/12/18 18:59 06:59 18:59 Intake Total 1999 1230 / 1230 1000 / 1000 Balance 1999 1230 / 1230 1000 / 1000 Weight 72.121 kg 72.12 kg Intake: IV 1999 1000 / 1000 NS Inj 1,000 ML @ 1000 mls/hr 1999 IV.SIG BOLUS RAUL Rx#:[id number] Oral 1230 / 1230 Other: # Voids 3 4 Date of Last Bowel Movement 06/11/18 06/12/18 Weight On Admission 72.121 kg <Crissy Hui U - 06/12/18 11:46> Narrative: General: Well-developed, alert, and in no acute distress. Appears stated age, able to speak in full sentences HEENT: Atraumatic, non-icteric sclera and no conjunctival injection, moist mucous membranes Neck: Supple, trachea midline Cardiac: Regular rate and rhythm without murmurs or gallops Pulmonary: Non-labored breathing. Mild end expiratory wheezes in all lung martin with good air movement. Abdomen: Normal bowel sounds, soft and non-tender without rebound or guarding Extremities: No cyanosis or edema <[facility] 06/12/18 15:30> Assessment and Plan - Assessment (1) Asthma Code(s): J45.909 - Unspecified asthma, uncomplicated Status: Acute (2) Acute kidney injury Code(s): N17.9 - Acute kidney failure, unspecified Status: Acute (3) Dry cough Code(s): R05 - Cough Status: Acute (4) Hypertension Code(s): I10 - Essential (primary) hypertension Status: Acute (5) Leukocytosis Code(s): D72.829 - Elevated white blood cell count, unspecified Status: Acute (6) Lung nodule < 6cm on CT Code(s): R91.1 - Solitary pulmonary nodule Status: Acute <Rory Pedraza - 06/14/18 13:37> (1) Asthma Code(s): J45.909 - Unspecified asthma, uncomplicated Status: Acute (2) Acute kidney injury Code(s): N17.9 - Acute kidney failure, unspecified Status: Acute (3) Dry cough Code(s): R05 - Cough Status: Acute (4) Hypertension Code(s): I10 - Essential (primary) hypertension Status: Acute (5) Leukocytosis Code(s): D72.829 - Elevated white blood cell count, unspecified Status: Acute (6) Lung nodule < 6cm on CT Code(s): R91.1 - Solitary pulmonary nodule Status: Acute <[facility] - 06/12/18 15:30> - Assessment and Plan She is a 73-year-old female who presented with shortness of breath, chest tightness and a troponin of 0.02. Asthma: She has a 3-week history of shortness of breath and is been treated by her paving contractor as an outpatient with IV steroids. She has mild end expiratory wheezes. -PO prednisone -Continue home medications Symbicort -Scheduled duo neb every 4 hours while awake -Albuterol every 2 hours in between if needed for shortness of breath Acute kidney injury: Creatinine of 1.23 and BUN of 39, improved to 1.15 and 30. Likely prerenal -Avoid nephrotoxins Cough -Associated with chest tightening -Start Tessalon Perles 200 mg p.o. 3 times daily Hypertension: -Continue home medication losartan hydrochlorothiazide Leukocytosis: Most likely secondary to steroids, trended down from 19.5-11.9 today -Monitor for signs and symptoms of systemic infection Lung Nodule on CT -Patient is aware previously -Recommend short-term follow-up CT of the chest in 3-6 months Fluids: Oral Electrolytes: monitor and replete as needed Nutrition: Regular diet GI prophylaxis: not indicated, continue home medication Protonix VTE prophylaxis: Early ambulation <Crissy Hui U - 06/12/18 15:37> Discussed Condition With: Seen and examined with Dr. Pedraza-attending and Dr. Zhang-PGY 1 <Crissy Hui - 06/12/18 15:30> Discharge Planning: Plan to discharge home today -patient to follow-up with her paving contractor as previous <Crissy Hui - 06/12/18 15:30> - Attending Attestation See the residents documentation for details. I saw and evaluated the patient regarding the witt portions of this evaluation and agree with the residents findings and plans as written. Parts of this note were created using [employer] voice recognition software program. While efforts were made to correct any mistakes made by this software, some mistakes, errors, and omissions may remain in the final note that were not caught when the note was originally created. Plan of care was discussed and agreed upon with the patient as specifically documented in the above note. An opportunity to ask questions with explanation was provided. Patient voiced understanding on all information reviewed and discussed. <Rory Pedraza - 06/14/18 13:37> <Crissy Hui U - Last Filed: 06/12/18 15:30> (1) Asthma Qualifiers: Asthma complication type: with acute exacerbation <Rory Pedraza - Last Filed: 06/14/18 13:37> (1) Asthma Qualifiers: Asthma complication type: with acute exacerbation <Crissy Hui U - Last Filed: 06/12/18 15:30> (1) Asthma Qualifiers: Asthma complication type: with acute exacerbation <Rory Pedraza - Last Filed: 06/14/18 13:37> (1) Asthma Qualifiers: Asthma complication type: with acute exacerbation
--- NOTE | 2018-06-12 18:56 | ECG ---
Date Performed: 06/11/2018 Time Performed: 15:37:44 PTAGE: 73 years EKG: Sinus rhythm RIGHT BUNDLE BRANCH BLOCK ABNORMAL ECG PREVIOUS TRACING : 03/31/2016 10.11 Since the previous tracing, no significant change noted DOCTOR: Nba Ramsey Interpretating Date/Time 06/12/2018 18:54:34
--- NOTE | 2018-06-12 18:56 | ECG ---
Date Performed: 06/11/2018 Time Performed: 20:56:21 PTAGE: 73 years EKG: Sinus rhythm RIGHT BUNDLE BRANCH BLOCK ABNORMAL ECG PREVIOUS TRACING : 06/11/2018 15.37 Since the previous tracing, no significant change noted DOCTOR: Nba Ramsey Interpretating Date/Time 06/12/2018 18:54:43
== END 2018-06-12 15:21 | disposition home or self-care (01) ==
LOC: NEPE 12:48 → NEDA 12:48 → NEPHCDU 17:20
PROVIDERS: ADMIT Family Medicine; ATTEND Family Medicine